=== PATIENT | male | born 1995 | race Caucasian/White ===

== ENCOUNTER 2016-11-23 04:33 | Inpatient (IN) ==
[2016-11-23] MEDS ORDERED: Naloxone 0.4 MG/ML INJ ONE (04:35)
[2016-11-23] MEDS ORDERED: Ondansetron 4 MG/2 ML VIAL IVP ONE (04:49)
[2016-11-23] MEDS ORDERED: Naloxone 0.4 MG/ML INJ IVP ONE (04:49)
[2016-11-23] MEDS ORDERED: 0.9 % Sodium Chloride 1,000 ML IVC ONE (04:49)
[2016-11-23] MEDS ORDERED: Propofol 500 MG/50 ML INFUS..BTL ONE (05:08)
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
[2016-11-23] MEDS ORDERED: *HR* Etomidate 20 MG/10 ML AMPUL IVP ONE ×2 (05:19→10:49)
[2016-11-23] MEDS ORDERED: *HR* Succinylcholine 200 MG/10 ML VIAL IVP ONE ×2 (05:19→10:49)
[2016-11-23] MEDS ORDERED: *HR* FentaNYL (PF) 100 MCG/2 ML VIAL ONE ×2 (05:32→05:37)
[2016-11-23] MEDS ORDERED: *HR* FentaNYL (PF) 100 MCG/2 ML VIAL IVP ONE (05:53)
[2016-11-23 06:11] LABS: Basophils % 0.3 %; Eosinophils # 0.3 K/mcL (0.0-0.6); Hematocrit 49.4 % (37.5-50.1); Hemoglobin 16.7 g/dL (12.9-16.9); Immature Granulocytes % 0.4 % (0-4); Lymphocytes # 3.4 K/mcL (0.6-4.6); Mean Corpuscular HGB Conc 33.8 g/dL (31.6-35.5); Mean Corpuscular Hemoglobin 30.7 pg (28.0-33.3); Mean Corpuscular Volume 90.8 fL (83.0-100.0); Mean Platelet Volume 10.3 fL (9.4-12.4); Monocytes # 0.9 K/mcL (0.0-1.3); Monocytes % 6.1 %; Neutrophils # 9.5 K/mcL (1.6-8.9); Platelet Count 211 K/mcL (140-400); Red Blood Count 5.44 M/mcL (4.19-5.50); Red Cell Distribution Width 12.7 % (11.5-14.5); Segmented Neutrophils % 67.2 %
[2016-11-23 06:16] LABS: ABG Base Excess -2.9 mEq/L (-2.0 to 3.0); ABG HCO3 24.5 mEQ/L (21-27); ABG Oxygen Saturation 98 % (95-98); ABG PCO2 51 mmHg (35-45); ABG PH 7.29 pH Units (7.32-7.45); ABG PO2 113 mmHg (85-104); ABG TCO2 26.1 mEq/L (20-26)
[2016-11-23 06:29] LABS: Alanine Aminotransferase 27 Units/L (0-55); Albumin 3.7 g/dL (3.5-5.0); Albumin/Globulin Ratio 1.1 (1.1-2.2); Alkaline Phosphatase 95 Units/L (38-126); Aspartate Amino Transferase 32 Units/L (5-34); BUN/Creatinine Ratio 13 (6-26); Bilirubin,Direct 0.2 mg/dL (0.0-0.5); Bilirubin,Indirect 0.4 mg/dL (0.0-1.2); Bilirubin,Total 0.6 mg/dL (0.2-1.2); Blood Urea Nitrogen 9 mg/dL (8-26); Calcium 8.3 mg/dL (8.6-10.8); Carbon Dioxide 23 mEq/L (19-29); Chloride 104 mEq/L (98-109); Creatine Kinase 165 Units/L (30-200); Ethanol 47 mg/dL (0-10); Globulin 3.3 g/dL (2.4-3.5); Glucose 101 mg/dL (70-99); Osmolality,Calculated 289 (280-300); Potassium 3.4 mEq/L (3.5-4.5); Sodium 140 mEq/L (136-145); eGFR For African Americans > 60 (> 60); eGFR For Non-African Americans > 60 (> 60)
[2016-11-23 06:31] LABS: Acetaminophen < 1.0 mcg/mL (10-30); Salicylate < 5.0 mg/dL (15-30)
[2016-11-23 07:38] LABS: Bilirubin,Urine Negative (Negative); Blood,Urine Small (Negative); Clarity,Urine Cloudy (Clear); Color,Urine Yellow (Yellow); Glucose,Urine (UA) Normal (Normal); Ketones,Urine Negative (Negative); Leukocyte Esterase,Urine Trace (Negative); Nitrite,Urine Negative (Negative); PH,Urine 6.5 pH Units (5.0-8.0); Protein,Urine Negative (Neg-Trace); Specific Gravity,Urine 1.013 (1.010-1.025); Urobilinogen,Urine Normal (Normal)
[2016-11-23 07:44] LABS: Hyaline Casts,Urine None Seen per lpf (None-Few)
--- NOTE | 2016-11-23 08:00 | Pulmonology History & Physical ---
<Cheryl Perez - Last Filed: 11/23/16 12:09> Date of Encounter: 11/23/16 Time of Encounter: 08:00 Assessment and Plan (1) Altered mental status, unspecified Status: Acute Patient arrived to the ICU more alert. We decided to extubate the patient. Upon extubation, the patient was alert and oriented. Denies any drug intoxication. Neuro exam WNL. Unsure of cause of AMS at this time. Will continue work up with urine drug screen. Qualifiers: Altered mental status type: unspecified Qualified Code(s): R41.82 - Altered mental status, unspecified (2) Hypokalemia Status: Acute Will orally replete. (3) Acute respiratory failure Status: Acute Due to AMS. Patient was extubated in the ICU with no complications. Was alert and oriented after extubation. Qualifiers: Respiratory failure complication: unspecified whether with hypoxia or hypercapnia Qualified Code(s): J96.00 - Acute respiratory failure, unspecified whether with hypoxia or hypercapnia History of Present Illness HPI: Mr. Dooley is a 21 year old male brought to the ED for AMS. According to his girlfriend, he went out drinking last night. No other known ingestions. No history of drug or alcohol abuse. Girlfriend picked patient up from the alliance party and he was acutely altered. When they got home, he fell out of the car and had to be carried inside. Girlfriend was unable to awake the patient at home and therefore called EMS. When he arrived to the ED his GCS was 7. (1-1-5) They originally believed his acute AMS was due to alcohol intoxication but his alcohol level showed to only be 47. They proceeded to intubate the patient when he came hypoxic in the ED with O2 saturations around 86%. He had one episode of flexed posturing of his head and hands in the ED. Neurology was consulted who suggested an EEG be completed. CT of head and C-spine were normal. Chest x-ray was normal. Ng was placed in the ED. Waiting on urine testing. Patient was also given narcan with no changes in symptoms. Glucose was 100 in the ED. No known past medical history. Patient discloses smoking marijuana and drinking two "tall boy" beers last night. Denies any other drug intoxication. Past Med Surg Social Fam HX - Past Medical History Medical history: no medical history - Past Surgical History Surgical History: non-contributory - Social History Smoking Status: Unknown if ever smoked Alcohol use: recent Drug use: unknown - Family History Grandfather Hx Family Cardiac Disorders: Yes Medications and Allergies Diphenoxylate/Atropine [Lomotil 2.5 mg/0.025 mg] 1 each PO QID PRN 02/19/16 [ History] Colchicine [Colcrys] 0.6 mg PO DAILY #30 tablet 02/21/16 [Rx] Ibuprofen [Motrin] 800 mg PO Q8HR #42 tablet 02/21/16 [Rx] Omeprazole [PriLOSEC] 20 mg PO DAILY@0630 #30 capsule.dr 02/21/16 [Rx] Diphenoxylate/Atropine [Lomotil 2.5 mg/0.025 mg] 1 - 2 tab PO QID PRN 11/23/16 [ History] Paroxetine HCl [Paxil] 20 mg PO DAILY 11/23/16 [History] 3 Allergy/AdvReac Type Severity Reaction Status Date / Time No Known Allergies Allergy Verified 02/19/16 12:39 ROS unobtainable: due to mental status All Systems: A 10-system review of systems was performed and is negative for pertinent findings except as documented above in the HPI. - Constitutional Constitutional: no chills, no fever(s), no headache(s), no weakness - EENT Eyes: no loss of vision Ears: no decreased hearing Nose, mouth and throat: no neck pain, no vertigo - Cardiovascular Cardiovascular: no chest pain, no lightheadedness, no syncope - Respiratory Respiratory: no cough, no hemoptysis, no wheezing - Gastrointestinal Gastrointestinal: no abdominal pain, no diarrhea, no nausea, no vomiting - Genitourinary Genitourinary: as per HPI - Musculoskeletal Musculoskeletal: no abnormal gait, no muscle weakness - Integumentary Integumentary: no rash, no jaundice - Neurological Neurological: no abnormal gait, no abnormal speech, no behavioral changes - Psychiatric Psychiatric: as per HPI - Endocrine Endocrine: as per HPI - Hematologic/Lymphatic Hematologic/Lymphatic: as per HPI - Allergic/Immunologic Allergic/Immunologic: as per HPI Physical Examination Vital Signs: Vital Signs, Last 4 Hours Pulse Resp BP Pulse Ox 11/23/16 07:25 59 16 105/60 100 General appearance: no acute distress, alert, agitated Eyes: nonicteric ENT: oropharynx moist Neck: supple, no JVD Effort: normal Inspection: normal Auscultation: bilateral: clear Cardiovascular: regular rate and rhythm Gastrointestinal: normoactive bowel sounds, soft, non-distended Integumentary: normal, other (small possible burn finn noted on the abdomen) Extremities: no cyanosis, no edema, no clubbing Musculoskeletal: no deformities Gait: normal posture non-focal exam, unable to assess due to mental status anxious Results - Laboratory Findings CBC and BMP: 11/23/16 05:58 11/23/16 05:58 ABG ABG pH 7.29 pH Units (7.32-7.45) L 11/23/16 06:05 ABG pCO2 51 mmHg (35-45) H 11/23/16 06:05 ABG pO2 113 mmHg (85-104) H 11/23/16 06:05 ABG O2 Saturation 98 % (95-98) 11/23/16 06:05 Abnormal lab findings: Abnormal lab results WBC 14.2 K/mcL (4.3-11.1) H 11/23/16 05:58 Neutrophils # 9.5 K/mcL (1.6-8.9) H 11/23/16 05:58 ABG pH 7.29 pH Units (7.32-7.45) L 11/23/16 06:05 ABG pCO2 51 mmHg (35-45) H 11/23/16 06:05 ABG pO2 113 mmHg (85-104) H 11/23/16 06:05 ABG Total CO2 26.1 mEq/L (20-26) H 11/23/16 06:05 ABG Base Excess -2.9 mEq/L (-2.0 to 3.0) L 11/23/16 06:05 Potassium 3.4 mEq/L (3.5-4.5) L 11/23/16 05:58 Creatinine 0.71 mg/dL (0.72-1.25) L 11/23/16 05:58 Glucose 101 mg/dL (70-99) H 11/23/16 05:58 Lactic Acid 2.6 mmol/L (0.5-2.2) H 11/23/16 05:58 Calcium 8.3 mg/dL (8.6-10.8) L 11/23/16 05:58 Urine Clarity Cloudy (Clear) A 11/23/16 07:14 Urine Blood Small (Negative) H 11/23/16 07:14 Ur Leukocyte Esterase Trace (Negative) H 11/23/16 07:14 Salicylates < 5.0 mg/dL (15-30) L 11/23/16 05:58 Acetaminophen < 1.0 mcg/mL (10-30) L 11/23/16 05:58 Ethyl Alcohol 47 mg/dL (0-10) H 11/23/16 05:58 - Diagnostic Findings Chest x-ray: report reviewed, image reviewed <Shruthi Singh - Last Filed: 11/23/16 20:11> Date of Encounter: 11/23/16 History of Present Illness HPI: Mr. Dooley is a 21 year old male All Systems: A 10-system review of systems was performed and is negative for pertinent findings except as documented above in the HPI. Physical Examination Vital Signs: Vital Signs, Last 4 Hours Pulse Resp BP Pulse Ox 11/23/16 10:00 73 16 116/64 100 Results - Laboratory Findings CBC and BMP: 11/23/16 05:58 11/23/16 05:58 ABG ABG pH 7.29 pH Units (7.32-7.45) L 11/23/16 06:05 ABG pCO2 51 mmHg (35-45) H 11/23/16 06:05 ABG pO2 113 mmHg (85-104) H 11/23/16 06:05 ABG O2 Saturation 98 % (95-98) 11/23/16 06:05 Abnormal lab findings: Abnormal lab results WBC 14.2 K/mcL (4.3-11.1) H 11/23/16 05:58 Neutrophils # 9.5 K/mcL (1.6-8.9) H 11/23/16 05:58 ABG pH 7.29 pH Units (7.32-7.45) L 11/23/16 06:05 ABG pCO2 51 mmHg (35-45) H 11/23/16 06:05 ABG pO2 113 mmHg (85-104) H 11/23/16 06:05 ABG Total CO2 26.1 mEq/L (20-26) H 11/23/16 06:05 ABG Base Excess -2.9 mEq/L (-2.0 to 3.0) L 11/23/16 06:05 Potassium 3.4 mEq/L (3.5-4.5) L 11/23/16 05:58 Creatinine 0.71 mg/dL (0.72-1.25) L 11/23/16 05:58 Glucose 101 mg/dL (70-99) H 11/23/16 05:58 Lactic Acid 2.6 mmol/L (0.5-2.2) H 11/23/16 05:58 Calcium 8.3 mg/dL (8.6-10.8) L 11/23/16 05:58 Ur Specimen Adequacy See below A 11/23/16 07:14 Urine Clarity Cloudy (Clear) A 11/23/16 07:14 Urine Blood Small (Negative) H 11/23/16 07:14 Ur Leukocyte Esterase Trace (Negative) H 11/23/16 07:14 Salicylates < 5.0 mg/dL (15-30) L 11/23/16 05:58 Acetaminophen < 1.0 mcg/mL (10-30) L 11/23/16 05:58 Urine Cocaine Screen Positive ng/mL (Cutoff= 300) H 11/23/16 07:14 U Marijuana (THC) Screen Positive ng/mL (Cutoff = 50) H 11/23/16 07:14 Ethyl Alcohol 47 mg/dL (0-10) H 11/23/16 05:58 - Attending Attestation I examined this patient and my medical decision-making was reviewed with the Resident Physician. I agree with the documented findings, disposition and treatment plan as described except to the extent set forth below. Patient seen and examined. Labs, radiology, chart personally reviewed. 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 patient was assessed in the intensive care unit and he was extubated. Patient has been alert oriented and he admitted using substance abuse. Patient wanted to leave AGAINST MEDICAL ADVICE even though he was told this is not recommended and he also was advised not to use illicit drugs. Patient understand and he was alert and oriented 3.
[2016-11-23 08:15] LABS: Squamous Epithelial Cell,Urine Few per lpf (None-Few)
[2016-11-23 08:16] LABS: Bacteria,Urine Few per hpf (None-Few); RBC,Urine 0-3 per hpf (0-3); WBC,Urine 0-3 per hpf (0-3)
[2016-11-23 08:21] LABS: Amphetamine Screen,Urine Negative ng/mL (Cutoff=1000); Barbiturate Screen,Urine Negative ng/mL (Cutoff=200); Benzodiazepines Screen,Urine Negative ng/mL (Cutoff=200); Cannabinoid Screen,Urine Positive ng/mL (Cutoff = 50); Cocaine Screen,Urine Positive ng/mL (Cutoff= 300); Opiate Screen,Urine Negative ng/mL (Cutoff=300); Phencyclidine Screen,Urine Negative ng/mL (Cutoff=25)
[2016-11-23] MEDS ORDERED: Lacri-Lube 3.5 GM TUBE BOTH EYES PRN (08:29)
--- NOTE | 2016-11-23 08:58 | Neurology - Consult Note ---
Date of Encounter: 11/23/16 Time of Encounter: 08:30 Assessment and Plan (1) Altered mental status, unspecified Current Visit: Yes Status: Acute pt aletered mental status was likely due to alcohol intoxication per perhaps some other drugs ? that he may have used during the green party last night, at this time not much history is available he seem to be waking up now, hopefully extubated soon, no evidence of any focal motor weakness on exam as far as question of seizures, he did' have some stiffness of body in ER but no convulsion, perhaps due to hypoxia, at this time NO definite evidence of seizures activity would not recommend any AED for now, continue current symptomatic treatment , Qualifiers: Altered mental status type: disorientation Qualified Code(s): R41.0 - Disorientation, unspecified History of Present Illness HPI: Mr. Dooley is a 21 year old male brought to the ED for AMS. According to his girlfriend, he went out drinking last night. when she picked him up from the green party and he was confused. When they got home, he fell out of the car and had to be carried inside. she was not able to wake him, she called EMS. When he arrived to the ED he was unresponsive, thought it was due to alcohol intoxication, alcohol level showed was 47. he got intubated in the ED with O2 saturations around 86%. He had one episode of flexed posturing of his head and hands in the ED. CT of head and C-spine were negative, Chest x-ray was normal. Glucose was 100 in the ED. No known history of seizures, now in ICU< he seem to be waking up, sitting up able to follow some commands. Past Med Surg Social Fam HX - Past Medical History Medical history: no medical history - Past Surgical History Surgical History: non-contributory - Social History Smoking Status: Unknown if ever smoked Alcohol use: recent Drug use: unknown Medications and Allergies Diphenoxylate/Atropine [Lomotil 2.5 mg/0.025 mg] 1 - 2 tab PO QID PRN 11/23/16 [ History] Paroxetine HCl [Paxil] 20 mg PO DAILY 11/23/16 [History] 3 Allergy/AdvReac Type Severity Reaction Status Date / Time No Known Allergies Allergy Verified 11/23/16 04:50 All Systems: A 10-system review of systems as documented above in the HPI.now awake but still intubated Physical Examination - Vital Signs Vital Signs: Initial Vital Signs Temp Pulse Resp BP Pulse Ox 97.4 F L 66 24 100/51 97 11/23/16 04:37 11/23/16 04:37 11/23/16 04:37 11/23/16 04:37 11/23/16 04:37 - Constitutional General appearance: other - Neurologic Sensorimotor examination: intact, other (intubated, awake, able to follow some commands) Detailed motor examination: grossly full strength in all extremities Reflexes: Biceps: 1+, Triceps: 1+, Brachioradialis: 1+, Patella: 1+, Achilles: 1 + Mental Status Examination: awake, opens eyes to voice, opens eyes to noxious stimulation, localizes noxious stimulation Cranial nerve examination: PERRL, EOMI, no facial asymmetry is present (limited neuro exam as intubated waking up now moving all extremeties equally) Results - Laboratory Findings CBC and BMP: 11/23/16 05:58 11/23/16 05:58 Abnormal lab findings: Abnormal lab results WBC 14.2 K/mcL (4.3-11.1) H 11/23/16 05:58 Neutrophils # 9.5 K/mcL (1.6-8.9) H 11/23/16 05:58 ABG pH 7.29 pH Units (7.32-7.45) L 11/23/16 06:05 ABG pCO2 51 mmHg (35-45) H 11/23/16 06:05 ABG pO2 113 mmHg (85-104) H 11/23/16 06:05 ABG Total CO2 26.1 mEq/L (20-26) H 11/23/16 06:05 ABG Base Excess -2.9 mEq/L (-2.0 to 3.0) L 11/23/16 06:05 Potassium 3.4 mEq/L (3.5-4.5) L 11/23/16 05:58 Creatinine 0.71 mg/dL (0.72-1.25) L 11/23/16 05:58 Glucose 101 mg/dL (70-99) H 11/23/16 05:58 Lactic Acid 2.6 mmol/L (0.5-2.2) H 11/23/16 05:58 Calcium 8.3 mg/dL (8.6-10.8) L 11/23/16 05:58 Ur Specimen Adequacy See below A 11/23/16 07:14 Urine Clarity Cloudy (Clear) A 11/23/16 07:14 Urine Blood Small (Negative) H 11/23/16 07:14 Ur Leukocyte Esterase Trace (Negative) H 11/23/16 07:14 Salicylates < 5.0 mg/dL (15-30) L 11/23/16 05:58 Acetaminophen < 1.0 mcg/mL (10-30) L 11/23/16 05:58 Urine Cocaine Screen Positive ng/mL (Cutoff= 300) H 11/23/16 07:14 U Marijuana (THC) Screen Positive ng/mL (Cutoff = 50) H 11/23/16 07:14 Ethyl Alcohol 47 mg/dL (0-10) H 11/23/16 05:58 Consult Discharge Plan - Plan Referrals: NONE,PCP [Primary Care Provider] -
[2016-11-23] MEDS ORDERED: Chlorhexidine Rinse 15 ML MOUTHWASH MM SCH (09:00)
[2016-11-23 10:03] VITALS: BP 116/64
--- NOTE | 2016-11-23 10:40 | Discharge Summary ---
<Cheryl Perez - Last Filed: 11/23/16 12:12> Date of Encounter: 11/23/16 Time of Encounter: 10:30 - Discharge Diagnosis (1) Altered mental status, unspecified Priority: Primary Status: Acute Comments: Patient was extubated in the ICU. Unsure of cause of AMS, possibly due to drug or alcohol intoxication He is alert and orientated at this time. Refusing any further work up or treatment. Leaving AMA. Qualifiers: Altered mental status type: unspecified Qualified Code(s): R41.82 - Altered mental status, unspecified (2) Acute respiratory failure Priority: Secondary Status: Acute Comments: Patient was extubated in the ICU. Oxygen saturation and vitals stable with no distress after extubation. Qualifiers: Respiratory failure complication: unspecified whether with hypoxia or hypercapnia Qualified Code(s): J96.00 - Acute respiratory failure, unspecified whether with hypoxia or hypercapnia (3) Hypokalemia Priority: Secondary Status: Acute Comments: Orally repleted - Discharge Medications Home Medications: Diphenoxylate/Atropine [Lomotil 2.5 mg/0.025 mg] 1 each PO QID PRN 02/19/16 [ History] Colchicine [Colcrys] 0.6 mg PO DAILY #30 tablet 02/21/16 [Rx] Ibuprofen [Motrin] 800 mg PO Q8HR #42 tablet 02/21/16 [Rx] Omeprazole [PriLOSEC] 20 mg PO DAILY@0630 #30 capsule. 02/21/16 [Rx] Diphenoxylate/Atropine [Lomotil 2.5 mg/0.025 mg] 1 - 2 tab PO QID PRN 11/23/16 [ History] Paroxetine HCl [Paxil] 20 mg PO DAILY 11/23/16 [History] Allergies/Adverse Reactions: 3 Allergy/AdvReac Type Severity Reaction Status Date / Time No Known Allergies Allergy Verified 02/19/16 12:39 Labs on day of discharge: Labs from last 24 hours 11/23/16 07:54 POC Glucose 69 Date of admission: 11/23/16 07:23 Primary care physician: PCP NONE Discharging clinician: Shruthi Singh Anticipated date of discharge: 11/23/16 - Patient Status Disposition: Left Against Medical Advice Condition: Good Functional capacity at discharge: independent ambulation Overall status at discharge: patient is back to baseline - Discharge Instructions Follow Up With: NONE,PCP [Primary Care Provider] - - Diet and Activity Activity: increase activity as tolerated Diet: advance to your usual diet - Hospital Course Hospital course: Mr. Dooley is a 21 year old male - Time Spent with Patient Total time spent providing and/or coordinating discharge services: Physical Examination Vital Signs: Vital Signs, Last 4 Hours Temp Pulse Resp BP Pulse Ox 11/23/16 10:00 73 16 116/64 100 11/23/16 09:00 72 16 120/71 100 11/23/16 08:25 21 111/67 100 11/23/16 08:05 16 121/99 100 11/23/16 08:00 95.8 F L 76 16 116/81 100 11/23/16 07:54 16 103/62 11/23/16 07:25 59 16 105/60 100 General appearance: no acute distress, alert Eyes: nonicteric ENT: oropharynx moist Neck: supple, no JVD Effort: normal Inspection: normal Auscultation: bilateral: clear Cardiovascular: regular rate and rhythm Gastrointestinal: normoactive bowel sounds, soft, non-tender, non-distended Integumentary: normal, other (small burn finn on the abdomen) Extremities: no cyanosis, no edema, no clubbing Musculoskeletal: no deformities Gait: normal posture normal mental status, pupils equal and round, CN II-XII normal, motor strength normal and symmetric anxious <Shruthi Singh M - Last Filed: 11/23/16 20:13> Date of Encounter: 11/23/16 Labs on day of discharge: Labs from last 24 hours 11/23/16 07:54 POC Glucose 69 Date of admission: 11/23/16 07:23 Primary care physician: PCP NONE - Hospital Course Hospital course: Mr. Dooley is a 21 year old male - Time Spent with Patient Total time spent providing and/or coordinating discharge services: Physical Examination Vital Signs: Vital Signs, Last 4 Hours Pulse Resp BP Pulse Ox 11/23/16 10:00 73 16 116/64 100 - Attending Attestation I examined this patient and my medical decision-making was reviewed with the Resident Physician. I agree with the documented findings, disposition and treatment plan as described except to the extent set forth below. patient is alert and oriented and he was advised not to leave and to be monitored, however he decided to go AGAINST MEDICAL ADVICE and he understand he could . He was advised to avoid any substance abuse. Normal.
--- NOTE | 2016-11-23 17:08 | Electrocardiograph Report ---
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
== END 2016-11-23 10:50 | disposition left against medical advice (07) | DRG 208 ==
LOC: EDBD → EMEROO 04:33 → MERGE 07:23 → ICNU 07:23
PROVIDERS: ADMIT Internal Medicine Pulmonary Disease; ATTEND Internal Medicine Pulmonary Disease